=== PATIENT | male | born 1975 | race Caucasian/White ===

== ENCOUNTER 2016-08-14 17:07 | Emergency (ER) | payer OTHER ==
[~2016-08-14] VITALS: Ht 177.8 cm; Wt 101.8 kg
[2016-08-14 21:40] VITALS: BP 154/94
== END 2016-08-14 21:41 | disposition home or self-care (01) ==
LOC: EME 17:07
DX: K43.9 Ventral hernia without obstruction or gangrene (principal); R03.0 Elevated blood-pressure reading, without diagnosis of hypertension; Z87.442 Personal history of urinary calculi
CPT/HCPCS: 74176; 99281; 99282